=== PATIENT | male | born 1960 | race Caucasian/White ===

== ENCOUNTER 2017-11-04 05:49 | Day surgery (SDC) | payer OTHER, SELFPAY ==
[2017-11-04] MEDS ORDERED: LACTATED RINGERS 1,000 ML ONE (08:23)
[2017-11-04] MEDS ORDERED: MIDAZOLAM INJ 2 MG/2 ML VIAL ONE (09:35)
[2017-11-04] MEDS ORDERED: fentaNYL CITRATE INJ 50 MCG/ML AMP ONE (09:35)
[2017-11-04] MEDS ORDERED: PROPOFOL 200 MG/20 ML VIAL IV ONE (10:00)
[2017-11-04] MEDS ORDERED: LIDOCAINE 1% 10 ML VIAL INJ ONE (10:00)
--- NOTE | 2017-11-04 10:28 | OP ---
DATE OF PROCEDURE: 11/04/17 PREPROCEDURE DIAGNOSIS: 1. Colonic polyp surveillance. Last colonoscopy in 2005. POSTPROCEDURE DIAGNOSIS: 1. Multiple colonic polyps. 2. Thickened sigmoid fold. 3. Diverticulosis. 4. Internal hemorrhoids. PROCEDURE: 1. Colonoscopy with snare polypectomy and biopsy. SURGEON: Sal Ellison MD. SEDATION: Monitored anesthesia care. ESTIMATED BLOOD LOSS: Less than 5 mL. PROCEDURE: Informed consent was obtained prior to sedation. The preprocedure cardiopulmonary assessment was satisfactory. The patient was brought to the Endoscopy Suite and placed in the left lateral decubitus position. The patient was then sedated by the anesthesia team. Digital rectal and perianal exams were normal. The tip of the Olympus colonoscope was inserted into the rectum and advanced under direct visualization to the cecum as identified by the presence of the appendiceal orifice and ileocecal valve. Preparation of the colon was good. Upon reaching the cecum, the endoscope was slowly withdrawn from the patient with careful attention paid to the entire colonic mucosa for the identification of any flat polyps or small vascular lesions. In the ascending colon and proximal transverse colon, there were two small 5 mm sessile polyps. These were resected with snare polypectomy, but were not able to be retrieved. In the sigmoid colon, there was an 8 mm pedunculated polyp. This was resected with hot snare polypectomy and retrieved for pathology analysis. There was also one thickened fold in the sigmoid colon, which I suspect is either prolapsing tissue or a lipoma. Biopsies were taken with cold forceps for histology analysis. In the sigmoid colon, there were multiple small colonic polyps. A retroflexed view of the anal verge showed small, non- bleeding internal hemorrhoids. The endoscope was then withdrawn from the patient and the procedure terminated. RECOMMENDATION: 1. Discharge the patient home with escort. 2. Followup pathology results. 3. Regular diet. 4. Continue present medications. 5. Surveillance colonoscopy in five years. #[id number] [facility]
[2017-11-04 12:44] VITALS: BP 137/85; TEMP 97.5; O2SAT 97
== END 2017-11-04 11:00 | disposition home or self-care (01) ==
LOC: AMB 05:49
PROVIDERS: ATTEND Internal Medicine Gastroenterology
DX: Z12.11 Encounter for screening for malignant neoplasm of colon (principal); D12.5 Benign neoplasm of sigmoid colon; K57.30 Diverticulosis of large intestine without perforation or abscess without bleeding; K64.8 Other hemorrhoids; E11.9 Type 2 diabetes mellitus without complications; K21.9 Gastro-esophageal reflux disease without esophagitis; G47.30 Sleep apnea, unspecified; F17.210 Nicotine dependence, cigarettes, uncomplicated; E66.9 Obesity, unspecified; Z68.41 Body mass index [BMI] 40.0-44.9, adult; Z79.84 Long term (current) use of oral hypoglycemic drugs; Z79.899 Other long term (current) drug therapy
CPT/HCPCS: 00812; 36416; 45380; 45385; 82948; J2250; J3010; J3490; J7120